=== PATIENT | female | born 1985 | race Caucasian/White ===

== ENCOUNTER 2019-10-10 09:20 | Emergency (ER) | payer SELFPAY ==
[~2019-10-10] VITALS: Ht 172.7 cm; Wt 81.8 kg
[2019-10-10 09:25] VITALS: BP 210/127
[2019-10-10] MEDS ORDERED: KETOROLAC 60 MG/2 ML VIAL. IM ONE (09:45)
[2019-10-10] MEDS ORDERED: MORPHINE SULFATE 4 MG/ML VIAL. IM ONE (09:45)
--- NOTE | 2019-10-10 10:02 | RAD ---
Right shoulder 4 views: Reason for examination: Injured shoulder lifting a table yesterday. No fracture or dislocation is seen. The bone density is normal. No abnormal periosteal reaction is seen. Joint spaces are maintained. IMPRESSION: No acute bony abnormality at the right shoulder. Electronically signed by: Catherine Goldman MD (10/10/2019 9:59 AM) [id number]
[2019-10-10] MEDS ORDERED: TRAM50TA PO ×2 (10:19→10:23)
[2019-10-10] MEDS ORDERED: NAPR500T8 PO (10:19)
--- NOTE | 2019-10-10 10:23 | PHYS DOC ---
Past Medical History Past Medical History: No Pertinent History Past Surgical History: Hysterectomy Smoking Status: Never Smoker Alcohol Use: None General Adult EDM: Chief Complaint: SHOULDER INJURY HPI: HPI: Patient is a 34 year old female presents to ER today for evaluation of right shoulder pain since last night. Patient says she was helping moving some furnitures last night, heard a pop in her right shoulder, having severe pain with any Movement since. Patient denies any other injury, denies any numbness or weakness in her right upper extremity. Review of Systems: Review of Systems: Constitutional: Denies fever or chills. [] Eyes: Denies change in visual acuity. [] HENT: Denies nasal congestion or sore throat. [] Respiratory: Denies cough or shortness of breath. [] Cardiovascular: Denies chest pain or edema. [] GI: Denies abdominal pain, nausea, vomiting, bloody stools or diarrhea. [] : Denies dysuria. [] Musculoskeletal: Denies back pain or joint pain. [] Integument: Denies rash. [] Neurologic: Denies headache, focal weakness or sensory changes. [] Endocrine: Denies polyuria or polydipsia. [] Lymphatic: Denies swollen glands. [] Psychiatric: Denies depression or anxiety. [] Heart Score: Risk Factors: Risk Factors: DM, Current or recent (<one month) smoker, HTN, HLP, family history of CAD, obesity. Risk Scores: Score 0 - 3: 2.5% MACE over next 6 weeks - Discharge Home Score 4 - 6: 20.3% MACE over next 6 weeks - Admit for Clinical Observation Score 7 - 10: 72.7% MACE over next 6 weeks - Early Invasive Strategies Current Medications: Current Medications Medications (Trade) Dose Ordered Sig/[facility] Start Time Stop Time Status Last Admin Dose Admin Ketorolac Tromethamine (Toradol Im) 60 mg 1X ONCE 10/10/19 09:45 10/10/19 09:51 DC 10/10/19 10:00 60 MG Morphine Sulfate (Morphine Sulfate) 4 mg 1X ONCE 10/10/19 09:45 10/10/19 09:51 DC 10/10/19 10:01 4 MG Allergies: Allergies: Allergies Coded Allergies Type Severity Reaction Last Updated Verified No Known Drug Allergies 10/10/19 No Physical Exam: PE: Constitutional: Well developed, well nourished, in moderate distress due to pain in her right shoulder, non-toxic appearance. [] HENT: Normocephalic, atraumatic, bilateral external ears normal, oropharynx moist, no oral exudates, nose normal. [] Eyes: PERRLA, EOMI, conjunctiva normal, no discharge. [] Neck: Normal range of motion, no tenderness, supple, no stridor. [] Cardiovascular:Heart rate regular rhythm, no murmur [] Lungs & Thorax: Bilateral breath sounds clear to auscultation [] Abdomen: Bowel sounds normal, soft, no tenderness, no masses, no pulsatile masses. [] Skin: Warm, dry, no erythema, no rash. [] Back: No tenderness, no CVA tenderness. [] Extremities: There is no deformity in her right shoulder however there is tender to palpation. Strong radial pulse, there is no focal neurological deficit. Neurologic: Alert and oriented X 3, normal motor function, normal sensory function, no focal deficits noted. [] Psychologic: Affect normal, judgement normal, mood normal. [] Current Patient Data: Vital Signs: Vital Signs Date Time Temp Pulse Resp B/P (MAP) Pulse Ox O2 Delivery O2 Flow Rate FiO2 10/10/19 10:01 20 10/10/19 09:25 98.4 108 210/127 (154) 97 Room Air 98.4 EKG: EKG: [] Radiology/Procedures: Radiology/Procedures: [][facility] [address] [place] [address] IMAGING REPORT Signed PATIENT: TUNDE MCLAUGHLIN ACCOUNT: [id number] : 1985 LOCATION: ER AGE: 34 SEX: F EXAM STATUS: REG ER ORD. PHYSICIAN: GERARD WEINSTEIN DO REASON: right shoulder injured after lifting a table yesterday PROCEDURE: SHOULDER 2+V RIGHT Right shoulder 4 views: Reason for examination: Injured shoulder lifting a table yesterday. No fracture or dislocation is seen. The bone density is normal. No abnormal periosteal reaction is seen. Joint spaces are maintained. IMPRESSION: No acute bony abnormality at the right shoulder. Electronically signed by: Ivory Ford MD (10/10/2019 9:59 AM) [id number] DICTATED and SIGNED BY: IVORY FORD MD DATE: 10/10/19 0959 Course & Med Decision Making: Course & Med Decision Making Pertinent Labs and Imaging studies reviewed. (See chart for details) Patient is a 34-year-old female who sprained her right shoulder from moving furniture, x-ray did not show any dislocation or any bony deformity. However she need to have MRI her shoulder to be done an outpatient. Patient will be discharged home with a sling and pain medication she is agreed to follow-up with her family doctor for MRI of her shoulder. Dragon Disclaimer: Dragon Disclaimer: This electronic medical record was generated, in whole or in part, using a voice recognition dictation system. Departure Departure Impression: Primary Impression: Sprain of right shoulder Disposition: 01 HOME, SELF-CARE Condition: STABLE Referrals: NO PCP (PCP) follow up with your doctor for follow up this week, you may need MRI of your shoulder for further evaluation. Patient Instructions: Shoulder Sprain Scripts Tramadol Hcl (TRAMADOL HCL) 50 Mg Tablet 50 MG PO Q6HRS PRN for PAIN, #30 TAB Prov: GERARD WEINSTEIN DO 10/10/19 Naproxen (NAPROXEN) 500 Mg Tablet. 1 TAB PO BID for pain, #30 TAB 2 Refills Prov: GERARD WEINSTEIN DO 10/10/19 GERARD WEINSTEIN DO Oct 10, 2019 10:23
== END 2019-10-10 10:41 | disposition home or self-care (01) ==
LOC: ER 09:20
DX: S43.491A Other sprain of right shoulder joint, initial encounter (principal); Z90.710 Acquired absence of both cervix and uterus; X50.9XXA Other and unspecified overexertion or strenuous movements or postures, initial encounter; Y93.89 Activity, other specified; Y92.89 Other specified places as the place of occurrence of the external cause; Y99.8 Other external cause status
CPT/HCPCS: 73030; 96372; 99284; J1885; J2270; A4565